=== PATIENT | male | born 1930 | race Caucasian/White ===

== ENCOUNTER 2016-12-07 07:31 | Inpatient (IN) ==
--- NOTE | 2016-12-07 07:44 | Emergency Department Note ---
Disposition Clinical Impression: Acute exacerbation of chronic obstructive pulmonary disease (COPD), Hypoxia Acute exacerbation of CHF (congestive heart failure) Qualifiers: Congestive heart failure type: unspecified congestive heart failure type Qualified Code(s): I50.9 - Heart failure, unspecified Disposition: Admitted As Inpatient SOB HPI - General Chief Complaint: ED Shortness of Breath/Dyspnea Stated Complaint: DINO Time Seen by Provider: 12/07/16 07:38 Limitations: physical limitation Nursing Notes Reviewed: Yes Vital Signs Reviewed: Yes - History of Present Illness Mr. Mcknight, an 86yo male, presents from the CT inpatient EMS with chief complaint at sign-out: Difficulty in breathing. Patient was admitted to the CT on the of this month for weakness. Per EMS, patient had a reported fever of 102F at [address] with syncopal episode. Per patient, patient was previously at [facility] for weakness and fever, was discharged from [facility] yesterday to CT inpatient from which he arrives today. Patient states, "This is a bronchospasm. This happens to me everyday at 4am. The CT respiratory does not come in until 7am." Patient has baseline home oxygen 2 L via nasal cannula continuous. PMH: CHF, SANDRA, CAD, history of a asbestos exposure, COPD, cor pulmonale, BPH, DM type II, GERD, diabetic peripheral neuropathy, hyperlipidemia, BPH, insomnia - Related Data Home Medications Medication Instructions Recorded Confirmed Alfuzosin HCl [Uroxatral] 10 mg PO QPM 02/14/16 12/07/16 Aspirin [Adult Low Dose Aspirin EC] 81 mg PO HS 02/14/16 12/07/16 Gabapentin [Neurontin] 300 mg PO BID 02/14/16 12/07/16 GlipiZIDE [Glucotrol] 5 mg PO BID 02/14/16 12/07/16 Guaifenesin 400 mg PO BID 02/14/16 12/07/16 Sertraline [Zoloft] 100 mg PO QAM 02/14/16 12/07/16 Acetaminophen [Tylenol] 650 mg PO TID PRN 12/07/16 12/07/16 Albuterol Neb [Proventil Neb] 2.5 mg IH QID PRN 12/07/16 12/07/16 Atorvastatin [Lipitor] 10 mg PO HS 12/07/16 12/07/16 Bisacodyl [Dulcolax] 20 mg PO DAILY PRN 12/07/16 12/07/16 Budesonide/Formoterol 160/4.5 2 puff IH BIDR 12/07/16 12/07/16 [Symbicort 160/4.5] Chlorhexidine Gluconate [Peridex] 15 ml MM BID 12/07/16 12/07/16 Diltiazem HCl [Diltiazem 24Hr Cd] 240 mg PO DAILY 12/07/16 12/07/16 Enoxaparin [Lovenox] 40 mg SQ DAILY 12/07/16 12/07/16 Furosemide [Lasix] 20 mg PO DAILY 12/07/16 12/07/16 Polyethylene Glycol 3350 [MiraLAX] 17 gm PO DAILY PRN 12/07/16 12/07/16 Potassium Chloride [Klor-Con 10] 10 meq PO DAILY 12/07/16 12/07/16 PredniSONE [Deltasone] 20 mg PO DAILY 12/07/16 12/07/16 Tiotropium [Spiriva] 18 mcg IH 0700 12/07/16 12/07/16 Allergies Allergy/AdvReac Type Severity Reaction Status Date / Time losartan Allergy Hives Verified 12/07/16 07:33 All systems ED: reviewed and negative except as stated. Constitutional: Reports: fever, weakness. Denies: chills Cardiovascular: Reports: dyspnea on exertion. Denies: chest pain, palpitations Respiratory: Reports: dyspnea. Denies: cough, wheezes Gastrointestinal: Denies: abdominal pain, nausea, vomiting, diarrhea, constipation Musculoskeletal: Denies: back pain, neck pain, joint swelling Neurological: Reports: weakness. Denies: headache, numbness, paresthesias, confusion Past Medical History - Past Medical History Medical history: Reports: asthma, CHF, COPD, coronary artery disease, diabetes, hyperlipidemia, hypertension, other Surgical history: Reports: no surgical history Psychiatric history: Reports: anxiety, depression - Social History Smoking Status: Former smoker Smokeless Tobacco Status: No Alcohol use: Reports: none Drug use: Reports: none Physical Exam General: Patient is alert, oriented, and in mild respiratory distress as evidenced by his tachypnea; no retractions, nasal flaring, cyanosis, or tripoding. HEENT: No facial asymmetry. Head is normocephalic and atraumatic. PERRLA, EOMI. Trachea midline. Cardiovascular: Heart regular rate and rhythm without clicks, rubs, gallops, or murmurs. No JVD. Respiratory: Symmetric chest rise with good respiratory effort. Prolonged expiratory phase. Bilateral breath sounds are clear without crackles, or rhonchi. No wheezing on anterior or lateral brito. Abdomen: Obese. Bowel sounds present normoactive x-4 quadrants. Abdomen is soft, nondistended, and nontender. Unable to assess organomegaly secondary to patient's body habitus. Psych: Patient's affect is appropriate for situation. - General Limitations: physical limitation General appearance: alert, in no apparent distress Course Course Narrative: Patient meets surgical criteria as defined by tachypnea of 24, tachycardia of 95. He is mildly hypoxic with oxygen saturation 87-89% on 2 L via nasal cannula. He remains hypoxic on 4 L nasal cannula. This improved substantially on a Ventimask 50%. Workup for dyspnea as well as sepsis. [facility] shows [facility] in [facility] 5 days ago; imaging was negative as detailed below. ----- [facility] at 22:03 read as stable subcentimeter pulmonary nodules consistent with a benign etiology, mild emphysema and evidence of subsegmental atelectasis versus scarring in both lungs , bilateral pleural plaques compatible with asbestos exposure, mild enlargement of the pulmonary arteries suggestive of pulmonary artery hypertension. 2-3 view x-ray of right hip status post fall and right hip pain, [facility]/30 at 15:00 shows bony alignment of the right hip within normal limits. No displaced fractures or dislocations are seen. 2 view chest [facility] dated 11/30 at 15:00 read as stable chest without evidence of acute cardiopulmonary disease. CT head without contrast [facility] in the [facility] dated 11/30 at 14:59 read as no evidence of intracranial hemorrhage or skull fracture. ----- Patient's imaging at this facility is negative for acute process. Chest X-Ray 12/07/16 07:39 IMPRESSION: 1. Findings suggesting asbestos related pleural disease. 2. Mild patchy ground-glass densities which are likely chronic in nature versus subtle interstitial edema. 3. No lobar pneumonia. D/ / Bernabe Gilmore MD / Bernabe Gilmore MD Interpreting Provider: Bernabe Gilmore MD Chest X-Ray 12/07/16 07:39 IMPRESSION: 1. Findings suggesting asbestos related pleural disease. 2. Mild patchy ground-glass densities which are likely chronic in nature versus subtle interstitial edema. 3. No lobar pneumonia. D/ / 12/07/2016 09:04:44 Bernabe Gilmore MD / Jimena Abbott Interpreting Provider: Bernabe Gilmore MD Head CT 12/07/16 08:26 IMPRESSION: 1. No acute intracranial abnormality. Chronic atrophy and small vessel ischemic changes. 2. Indeterminate hypodense foci of the left frontal lobe without expansion. When able, recommend comparison with prior MRI of the brain without contrast to 07/01/2015. D/ / 12/07/2016 09:28:43 Bernabe Gilmore MD / keegan Interpreting Provider: Bernabe Gilmore MD Chest CTA 12/07/16 09:10 IMPRESSION: 1. COPD. Decreased lung volumes which may relate to fibrosis. There is evidence of asbestos related pleural disease with chronic bilateral trace pleural effusions. 2. Cardiomegaly and central ground-glass densities suggesting acute congestive heart failure. Mild bibasilar atelectasis. No definite pneumonia. 3. No acute pulmonary emboli. Evidence of chronic pulmonary artery hypertension. D/ / 12/07/2016 10:03:06 Bernabe Gilmore MD / keegan Interpreting Provider: Bernabe Gilmore MD 10:[address] Gibson. He agrees to accept the patient for continued respiratory care and management. 10:[address] Macias (CT ED) Spoke with Dr. Bush (patient's PCP) - updated him on Mr. Mcknight as well as our rationale for admission. He notes patient spiked a fever wile inpatient at CT. They could not find a source. He spoke with ID at [facility] - they postulated patient could have mild serotonin syndrome, though he only occasionally takes low sertaline. They held this medication prior to transfer to [facility]. Vital Signs Temperature 99.4 F 12/07/16 07:34 Pulse Rate 95 12/07/16 07:34 Respiratory Rate 26 12/07/16 07:34 Blood Pressure 136/81 12/07/16 07:34 O2 Sat by Pulse Oximetry 89 L 12/07/16 07:34 Temperature 99.4 F 12/07/16 07:34 Pulse Rate 81 12/07/16 10:34 Respiratory Rate 22 12/07/16 09:45 Blood Pressure 124/76 12/07/16 10:34 O2 Sat by Pulse Oximetry 95 12/07/16 11:37 Oxygen Delivery Oxygen Delivery Ventilator Shortness of Breath/Dyspnea - Medical Records Medical records reviewed: Yes I reviewed the patient's medical records. - Lab Data Lab results reviewed: Yes I reviewed the patient's lab results. Result diagrams: 12/07/16 07:46 12/07/16 07:46 Lab Results 12/07/16 12/07/16 12/07/16 Range/Units 07:45 07:46 07:46 WBC 6.3 (4.3-11.1) K/mcL RBC 3.52 L (4.19-5.50) M/mcL Hgb 10.0 L (12.9-16.9) g/dL Hct 29.9 L (37.5-50.1) % MCV 84.9 (83.0-100.0) fL MCH 28.4 (28.0-33.3) pg MCHC 33.4 (31.6-35.5) g/dL RDW 14.2 (11.5-14.5) % Plt Count 172 (140-400) K/mcL MPV 10.2 (9.4-12.4) fL Immature Gran % 1.7 (0-4) % Seg Neutrophils % 76.4 % Lymphocytes % 10.6 % Monocytes % 8.5 % Eosinophils % 2.5 % Basophils % 0.3 % Neutrophils # 4.8 (1.6-8.9) K/mcL Lymphocytes # 0.7 (0.6-4.6) K/mcL Monocytes # 0.5 (0.0-1.3) K/mcL Eosinophils # 0.2 (0.0-0.6) K/mcL Basophils # 0.0 (0.0-0.2) K/mcL PT (9.4-12.1) Seconds INR APTT (26.0-36.0) Seconds Sodium 139 (136-145) mEq/L Potassium 4.2 (3.5-4.5) mEq/L Chloride 107 (98-109) mEq/L Carbon Dioxide 23 (19-29) mEq/L BUN 14 (8-26) mg/dL Creatinine 1.05 (0.72-1.25) mg/dL Est GFR ( Amer) > 60 (> 60) Est GFR (Non-Af Amer) > 60 (> 60) BUN/Creatinine Ratio 13 (6-26) Glucose 158 H (70-99) mg/dL POC Glucose 159 H (58-89) Calculated Osmolality 292 (280-300) Lactic Acid (0.5-2.2) mmol/L Calcium 8.2 L (8.6-10.8) mg/dL Phosphorus 2.3 (2.3-4.7) mg/dL Magnesium 1.3 L (1.6-2.6) mg/dL Troponin I (0-0.03) ng/mL B-Natriuretic Peptide (0-100) pg/mL Urine Color (Yellow) Urine Clarity (Clear) Urine pH (5.0-8.0) pH Units Ur Specific Josephine (1.010-1.025) Urine Protein (Neg-Trace) mg/dL Urine Glucose (UA) (Normal) mg/dL Urine Ketones (Negative) mg/dL Urine Blood (Negative) Urine Nitrite (Negative) Urine Bilirubin (Negative) Urine Urobilinogen (Normal) mg/dL Ur Leukocyte Esterase (Negative) Urine Microscopic RBC (0-3) per hpf Urine Microscopic WBC (0-3) per hpf Ur Squamous Epith Cells (None-Few) per lpf Urine Bacteria (None-Few) per hpf Hyaline Casts (None-Few) per lpf Ur Culture Indicated? (NO) 12/07/16 12/07/16 12/07/16 Range/Units 07:46 07:46 07:46 WBC (4.3-11.1) K/mcL RBC (4.19-5.50) M/mcL Hgb (12.9-16.9) g/dL Hct (37.5-50.1) % MCV (83.0-100.0) fL MCH (28.0-33.3) pg MCHC (31.6-35.5) g/dL RDW (11.5-14.5) % Plt Count (140-400) K/mcL MPV (9.4-12.4) fL Immature Gran % (0-4) % Seg Neutrophils % % Lymphocytes % % Monocytes % % Eosinophils % % Basophils % % Neutrophils # (1.6-8.9) K/mcL Lymphocytes # (0.6-4.6) K/mcL Monocytes # (0.0-1.3) K/mcL Eosinophils # (0.0-0.6) K/mcL Basophils # (0.0-0.2) K/mcL PT 13.1 H (9.4-12.1) Seconds INR 1.2 APTT 35.8 (26.0-36.0) Seconds Sodium (136-145) mEq/L Potassium (3.5-4.5) mEq/L Chloride (98-109) mEq/L Carbon Dioxide (19-29) mEq/L BUN (8-26) mg/dL Creatinine (0.72-1.25) mg/dL Est GFR ( Amer) (> 60) Est GFR (Non-Af Amer) (> 60) BUN/Creatinine Ratio (6-26) Glucose (70-99) mg/dL POC Glucose (58-89) Calculated Osmolality (280-300) Lactic Acid (0.5-2.2) mmol/L Calcium (8.6-10.8) mg/dL Phosphorus (2.3-4.7) mg/dL Magnesium (1.6-2.6) mg/dL Troponin I 0.13 H* (0-0.03) ng/mL B-Natriuretic Peptide 361 H (0-100) pg/mL Urine Color (Yellow) Urine Clarity (Clear) Urine pH (5.0-8.0) pH Units Ur Specific Josephine (1.010-1.025) Urine Protein (Neg-Trace) mg/dL Urine Glucose (UA) (Normal) mg/dL Urine Ketones (Negative) mg/dL Urine Blood (Negative) Urine Nitrite (Negative) Urine Bilirubin (Negative) Urine Urobilinogen (Normal) mg/dL Ur Leukocyte Esterase (Negative) Urine Microscopic RBC (0-3) per hpf Urine Microscopic WBC (0-3) per hpf Ur Squamous Epith Cells (None-Few) per lpf Urine Bacteria (None-Few) per hpf Hyaline Casts (None-Few) per lpf Ur Culture Indicated? (NO) 12/07/16 12/07/16 12/07/16 Range/Units 07:53 08:05 10:17 WBC (4.3-11.1) K/mcL RBC (4.19-5.50) M/mcL Hgb (12.9-16.9) g/dL Hct (37.5-50.1) % MCV (83.0-100.0) fL MCH (28.0-33.3) pg MCHC (31.6-35.5) g/dL RDW (11.5-14.5) % Plt Count (140-400) K/mcL MPV (9.4-12.4) fL Immature Gran % (0-4) % Seg Neutrophils % % Lymphocytes % % Monocytes % % Eosinophils % % Basophils % % Neutrophils # (1.6-8.9) K/mcL Lymphocytes # (0.6-4.6) K/mcL Monocytes # (0.0-1.3) K/mcL Eosinophils # (0.0-0.6) K/mcL Basophils # (0.0-0.2) K/mcL PT (9.4-12.1) Seconds INR APTT (26.0-36.0) Seconds Sodium (136-145) mEq/L Potassium (3.5-4.5) mEq/L Chloride (98-109) mEq/L Carbon Dioxide (19-29) mEq/L BUN (8-26) mg/dL Creatinine (0.72-1.25) mg/dL Est GFR ( Amer) (> 60) Est GFR (Non-Af Amer) (> 60) BUN/Creatinine Ratio (6-26) Glucose (70-99) mg/dL POC Glucose (58-89) Calculated Osmolality (280-300) Lactic Acid 1.3 1.3 (0.5-2.2) mmol/L Calcium (8.6-10.8) mg/dL Phosphorus (2.3-4.7) mg/dL Magnesium (1.6-2.6) mg/dL Troponin I (0-0.03) ng/mL B-Natriuretic Peptide (0-100) pg/mL Urine Color Yellow (Yellow) Urine Clarity Clear (Clear) Urine pH 6.0 (5.0-8.0) pH Units Ur Specific Josephine 1.014 (1.010-1.025) Urine Protein Negative (Neg-Trace) mg/dL Urine Glucose (UA) Normal (Normal) mg/dL Urine Ketones Negative (Negative) mg/dL Urine Blood Trace H (Negative) Urine Nitrite Negative (Negative) Urine Bilirubin Negative (Negative) Urine Urobilinogen Normal (Normal) mg/dL Ur Leukocyte Esterase Negative (Negative) Urine Microscopic RBC 5-15 H (0-3) per hpf Urine Microscopic WBC 0-3 (0-3) per hpf Ur Squamous Epith Cells Moderate H (None-Few) per lpf Urine Bacteria None Seen (None-Few) per hpf Hyaline Casts None Seen (None-Few) per lpf Ur Culture Indicated? NO (NO) - Radiology Data Radiology results reviewed: Yes I reviewed the patient's radiology results. - EKG Data EKG attestation: Yes I reviewed and interpreted this EKG. EKG results narrative: EKG dated 12/07/16 at 07:38 shows normal sinus rhythm with a rate of 84. Normal intervals. Left axis. Nonspecific ST-T changes. Compared to previous EKG dated 02/14/2016 at 17:02 showing no acute ischemic changes in comparison. Attestation Statement - Attestation Attestation: I examined this patient and my medical decision-making was reviewed with the PURCHASING MANAGER/SALES/PA/Advanced Practice Nurse/Resident Physician. I agree with the documented findings, disposition and treatment plan as described except to the extent set forth below. Patient emergency department with a chief complaint of altered mental status. Patient was a transfer from the CT in patient. Dr. cruz I took he had been admitted for several days for weakness. Today he was more confused and found to be hypoxic. Improve when oxygen was placed. On arrival here he is awake alert. Oriented today other week. Lungs diminished but clear. No swelling. Abdomen soft nontender. Moving all extremities symmetrically. Plan. Altered mental status workup. Patient improved on nonrebreather. Chest x-ray was clear. CTA pending. Low magnesium treated. Aspirin given for elevated troponin.
[2016-12-07] MEDS ORDERED: Ipratropium/Albuterol Neb 3 ML IH ONE (08:02)
[2016-12-07 08:04] LABS: Basophils % 0.3 %; Eosinophils # 0.2 K/mcL (0.0-0.6); Eosinophils % 2.5 %; Hematocrit 29.9 % (37.5-50.1); Immature Granulocytes % 1.7 % (0-4); Lymphocytes # 0.7 K/mcL (0.6-4.6); Lymphocytes % 10.6 %; Mean Corpuscular HGB Conc 33.4 g/dL (31.6-35.5); Mean Corpuscular Hemoglobin 28.4 pg (28.0-33.3); Mean Corpuscular Volume 84.9 fL (83.0-100.0); Mean Platelet Volume 10.2 fL (9.4-12.4); Monocytes # 0.5 K/mcL (0.0-1.3); Monocytes % 8.5 %; Neutrophils # 4.8 K/mcL (1.6-8.9); Platelet Count 172 K/mcL (140-400); Red Blood Count 3.52 M/mcL (4.19-5.50); Red Cell Distribution Width 14.2 % (11.5-14.5); Segmented Neutrophils % 76.4 %
[2016-12-07 08:09] LABS: INR 1.2; Prothrombin Time 13.1 Seconds (9.4-12.1)
[2016-12-07 08:12] LABS: Activated Partial Thrombo Time 35.8 Seconds (26.0-36.0)
[2016-12-07 08:14] LABS: Bilirubin,Urine Negative (Negative); Blood,Urine Trace (Negative); Clarity,Urine Clear (Clear); Color,Urine Yellow (Yellow); Glucose,Urine (UA) Normal (Normal); Ketones,Urine Negative (Negative); Leukocyte Esterase,Urine Negative (Negative); Nitrite,Urine Negative (Negative); Protein,Urine Negative (Neg-Trace); Specific Gravity,Urine 1.014 (1.010-1.025); Urobilinogen,Urine Normal (Normal)
[2016-12-07 08:16] LABS: Bacteria,Urine None Seen per hpf (None-Few); Hyaline Casts,Urine None Seen per lpf (None-Few); Squamous Epithelial Cell,Urine Moderate per lpf (None-Few); WBC,Urine 0-3 per hpf (0-3)
[2016-12-07 08:18] LABS: BUN/Creatinine Ratio 13 (6-26); Blood Urea Nitrogen 14 mg/dL (8-26); Calcium 8.2 mg/dL (8.6-10.8); Carbon Dioxide 23 mEq/L (19-29); Chloride 107 mEq/L (98-109); Glucose 158 mg/dL (70-99); Osmolality,Calculated 292 (280-300); Potassium 4.2 mEq/L (3.5-4.5); Sodium 139 mEq/L (136-145); eGFR For African Americans > 60 (> 60); eGFR For Non-African Americans > 60 (> 60)
[2016-12-07 08:28] LABS: Magnesium 1.3 mg/dL (1.6-2.6); Phosphorous 2.3 mg/dL (2.3-4.7)
[2016-12-07] MEDS ORDERED: Magnesium Oxide 400 MG TABLET PO STA (09:15)
[2016-12-07] MEDS ORDERED: Aspirin 325 MG TABLET PO ONE (09:16)
[2016-12-07] MEDS ORDERED: Furosemide 40 MG/4 ML VIAL IVP ONE (10:21)
[2016-12-07] MEDS ORDERED: Ondansetron 4 MG/2 ML VIAL IVP PRN (11:16)
[2016-12-07] MEDS ORDERED: Naloxone 0.4 MG/ML INJ IVP PRN (11:16)
[2016-12-07] MEDS ORDERED: *HR* Morphine 2 MG/ML SYRINGE IVP PRN (11:16)
[2016-12-07] MEDS ORDERED: Acetaminophen 325 MG TABLET PO PRN (11:16)
[2016-12-07] MEDS ORDERED: *HR* Dextrose 50 % in Water (Syg) 50 ML SYRINGE IVP PRN (11:16)
[2016-12-07] MEDS ORDERED: Dextrose Gel 15 GM PO PRN ×2 (11:16)
[2016-12-07] MEDS ORDERED: D5% in Water 1,000 ML IV PRN (11:16)
[2016-12-07] MEDS ORDERED: Ipratropium/Albuterol Neb 3 ML IH PRN (11:22)
[2016-12-07] MEDS ORDERED: Nitroglycerin 0.4 MG TAB.SUBL SL PRN (11:22)
--- NOTE | 2016-12-07 11:25 | Internal Med History&Physical ---
Date of Encounter: 12/07/16 Time of Encounter: 11:23 Assessment and Plan (1) Acute respiratory failure with hypoxia Current visit: Yes Status: Acute Acute hypoxic respiratory failure likely secondary to pulmonary edema from acute systolic and diastolic CHF exacerbation Lasix IV, strict I's and O's and daily weight The patient has an elevated troponin likely secondary to demand ischemia, we will order an echocardiogram to assess wall motion abnormalities Check another troponin, continue telemetry, consider urology consult (2) CHF exacerbation Current visit: No Status: Acute (3) Asbestos exposure Current visit: Yes Status: Acute (4) Diabetes Current visit: No Status: Acute Continue insulin sliding scale Qualifiers: Diabetes mellitus type: type 2 Diabetes mellitus complication status: with neurologic complications Diabetes mellitus complication detail: with unspecified neuropathy 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 The patient will be admitted as inpatient, he is expected to stay more than 12 midnight. He is a DNR CC arrest DNI. Time spent on this admission 40 minutes. High risk for respiratory failure Qualifiers: COPD type: chronic bronchitis Chronic bronchitis type: unspecified Qualified Code(s): J42 - Unspecified chronic bronchitis Internal Medicine - H&P: HPI Chief complaint: Shortness of breath Admitted From: Emergency Dept History of present illness: Mr. Mcknight is a 86 year old male with a past medical history of systolic and diastolic CHF and ejection fraction of 45% last echocardiogram on January 2016, COPD oxygen dependent, diabetes type 2 not insulin-dependent, comes transferred from the [facility] facility complaining of difficulty breathing. His BNP is [address] angiography of the chest was performed showing no pulmonary emboli but showed acute CHF and trace pleural effusions. CT scan of the head was performed showing a left frontal lobe hypodense abnormality but he has no deficits, unable to compare with prior studies as PACs is down. Patient feels less short of breath at the moment, she desaturated down to the 80s even on oxygen, his first troponin is 0.13, no acute EKG changes. [place] better after receiving Lasix. Was recently treated for bronchitis. Denies any major fevers although he was told that he run a low grade fevers in the past few days at the [facility]. Past Med Surg Social Fam HX - Past Medical History Medical history: asthma, CHF (Diastolic and systolic last echo January 2016 shows an ejection fraction of 45%), COPD (Oxygen dependent uses 2 L during the day and 4 L at night), coronary artery disease, diabetes (Not insulin-dependent), hyperlipidemia, hypertension, other (Neuropathy, depression, BPH, asbestos exposure) Psychiatric history: anxiety, depression - Past Surgical History Surgical History: no surgical history, other (Cardiac catheterization showing 30 % stenosis in the mid LAD last year, prostate surgery) - Social History Smoking Status: Former smoker (Quit 1972) Smokeless Tobacco Status: No Alcohol use: none Drug use: none - Family History Father Adopted: No Living Status: Hx Family Cardiac Disorders: No Hx Family Respiratory Disorders: Yes Hx Family Cancer: No Hx Family GI Disorders: No Hx Family Endocrine Disorder: Yes Hx Family Neuromuscular Disorders: No Hx Family Neurologic Disorders: No Hx Family HEENT Disorders: No Hx Family Autoimmune Disorders: No - Additional Family History Additional family history: Mother with uterine cancer and sister with lung cancer Internal Medicine - H&P: Meds Alfuzosin HCl [Uroxatral] 10 mg PO QPM 02/14/16 [History] Aspirin [Adult Low Dose Aspirin EC] 81 mg PO HS 02/14/16 [History] Gabapentin [Neurontin] 300 mg PO BID 02/14/16 [History] GlipiZIDE [Glucotrol] 5 mg PO BID 02/14/16 [History] Guaifenesin 400 mg PO BID 02/14/16 [History] Sertraline [Zoloft] 100 mg PO QAM 02/14/16 [History] Acetaminophen [Tylenol] 650 mg PO TID PRN 12/07/16 [History] Albuterol Neb [Proventil Neb] 2.5 mg IH QID PRN 12/07/16 [History] Atorvastatin [Lipitor] 10 mg PO HS 12/07/16 [History] Bisacodyl [Dulcolax] 20 mg PO DAILY PRN 12/07/16 [History] Budesonide/Formoterol 160/4.5 [Symbicort 160/4.5] 2 puff IH BIDR 12/07/16 [ History] Chlorhexidine Gluconate [Peridex] 15 ml MM BID 12/07/16 [History] Diltiazem HCl [Diltiazem 24Hr Cd] 240 mg PO DAILY 12/07/16 [History] Enoxaparin [Lovenox] 40 mg SQ DAILY 12/07/16 [History] Furosemide [Lasix] 20 mg PO DAILY 12/07/16 [History] Polyethylene Glycol 3350 [MiraLAX] 17 gm PO DAILY PRN 12/07/16 [History] Potassium Chloride [Klor-Con 10] 10 meq PO DAILY 12/07/16 [History] PredniSONE [Deltasone] 20 mg PO DAILY 12/07/16 [History] Tiotropium [Spiriva] 18 mcg IH 0700 12/07/16 [History] Allergies losartan Allergy (Verified 12/07/16 07:33) Hives All Systems PM: A 10-system review of systems was performed and is negative for pertinent findings except as documented above in the HPI. Review of systems: Denies any chest pain, no abdominal pain, no dysuria. Other systems out of the 10 reviewed were negative - Constitutional Vitals: Temp Pulse Resp BP Pulse Ox 99.4 F 81 22 124/76 97 12/07/16 07:34 12/07/16 10:34 12/07/16 09:45 12/07/16 10:34 12/07/16 10:34 General appearance: Present: A&O X 3 - Head Head exam: Present: atraumatic, normocephalic - Eye Eye exam: Present: PERRL, conjuntiva pink, sclera anicteric Pupils: Present: PERRL - Neck Neck exam general surgery: Present: supple, trachea midline. Absent: lymphadenopathy - Respiratory Respiratory exam: Present: decreased breath sounds, CTAB, rales (Bibasilar crackles). Absent: accessory muscle use, rhonchi, wheezes - Cardiovascular Cardiovascular exam: Present: RRR, +S1, +S2. Absent: diastolic murmur, gallop, rubs, systolic murmur - GI/Abdominal GI/Abdominal exam: Present: normal bowel sounds, soft, no peritoneal signs. Absent: distended, tenderness - Extremities Exam Extremities exam: Present: warm, radial pulses palpable and symetrical. Absent : calf tenderness, cyanotic, pedal edema - Neurological Exam Neurological exam: Present: CN II-XII intact, oriented X3, no focal deficits. Absent: pronater drift, facial droop, speech deficit - Skin Skin exam: Present: dry, intact Internal Med - H&P Results - Labs CBC & Chem 7: 12/07/16 07:46 12/07/16 07:46 Labs: Short CBC 12/07/16 Range/Units 07:46 WBC 6.3 (4.3-11.1) K/mcL Hgb 10.0 L (12.9-16.9) g/dL Hct 29.9 L (37.5-50.1) % Plt Count 172 (140-400) K/mcL Neutrophils # 4.8 (1.6-8.9) K/mcL BMP 12/07/16 07:46 Sodium 139 Potassium 4.2 Chloride 107 Carbon Dioxide 23 BUN 14 Creatinine 1.05 Glucose 158 H Calcium 8.2 L Cardiac Enzymes 12/07/16 Range/Units 07:46 Troponin I 0.13 H* (0-0.03) ng/mL Urine 12/07/16 Range/Units 08:05 Urine Color Yellow (Yellow) Urine Clarity Clear (Clear) Urine pH 6.0 (5.0-8.0) pH Units Ur Specific [place] 1.014 (1.010-1.025) Urine Protein Negative (Neg-Trace) mg/dL Urine Glucose (UA) Normal (Normal) mg/dL - Impressions ITS Impressions Chest X-Ray 12/07/16 07:39 IMPRESSION: 1. Findings suggesting asbestos related pleural disease. 2. Mild patchy ground-glass densities which are likely chronic in nature versus subtle interstitial edema. 3. No lobar pneumonia. D/ / 12/07/2016 09:04:44 Bernabe Gilmore MD / Jimena Abbott Interpreting Provider: Bernabe Gilmore MD Head CT 12/07/16 08:26 IMPRESSION: 1. No acute intracranial abnormality. Chronic atrophy and small vessel ischemic changes. 2. Indeterminate hypodense foci of the left frontal lobe without expansion. When able, recommend comparison with prior MRI of the brain without contrast to 07/01/2015. D/ / 12/07/2016 09:28:43 Bernabe Gilmore MD / keegan Interpreting Provider: Bernabe Gilmore MD Chest CTA 12/07/16 09:10 IMPRESSION: 1. COPD. Decreased lung volumes which may relate to fibrosis. There is evidence of asbestos related pleural disease with chronic bilateral trace pleural effusions. 2. Cardiomegaly and central ground-glass densities suggesting acute congestive heart failure. Mild bibasilar atelectasis. No definite pneumonia. 3. No acute pulmonary emboli. Evidence of chronic pulmonary artery hypertension. D/ / 12/07/2016 10:03:06 Bernabe Gilmore MD / keegan Interpreting Provider: Bernabe Gilmore MD
--- NOTE | 2016-12-07 12:00 | Electrocardiograph Report ---
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
[2016-12-07] MEDS: *HR* Enoxaparin 40 MG/0.4 ML SYRINGE SQ SCH (15:13)
[2016-12-07] MEDS: Ipratropium/Albuterol Neb 3 ML IH SCH ×2 (16:24→22:19)
--- NOTE | 2016-12-07 20:28 | ECHO - Doppler Report ---
Echocardiogram Name: Musa Mcknight Date of Study: 12/07/2016 Date: 1930 Ht: 69.0 in Medical Record#: [id number] Age: 86 Wt: 203.0 lb Gender: Male BSA: 2.08 Order #: [id number] Location: [facility] Room #: 2NE25 Reading Physician: Kevin Duncan MD, [facility] Electric Meter Installer Helper: Lashonda Carson Ordering Physician: Sandeep Hardwick MD Primary Physician: [facility] Indications: Congestive heart failure Impressions: Normal left ventricular size and systolic function, LVEF 55-60%. Mild left ventricular diastolic dysfunction. Normal right ventricular size and function. No significant valvular dysfunction. Mild-moderate pulmonary hypertension. Estimated RVSP = 46 mmHg. Left Ventricular Wall Motion: Rest Echo Findings All wall segments showed normal motion. Findings: Study Quality * Suboptimal echo windows. ECG Findings * Normal sinus rhythm. Left Ventricle * Normal left ventricular size and systolic function, LVEF 55-60%. * Normal LV wall thickness. * Mild left ventricular diastolic dysfunction. Right Ventricle * Normal right ventricular size and function. Left Atrium * Normal left atrial size. Right Atrium * Normal right atrial size. Aorta * Normally sized aortic root. Pericardium * There is a trivial pericardial effusion present. IVC * The IVC is not well evaluated. Aortic Valve * Trileaflet aortic valve. * No aortic stenosis. * No aortic regurgitation. Mitral Valve * Mild mitral annular calcification * No mitral stenosis. * Trace mitral regurgitation. Tricuspid Valve * Tricuspid valve not well visualized. * No tricuspid stenosis. * Trace tricuspid regurgitation. * Mild-moderate pulmonary hypertension. Estimated RVSP = 46 mmHg. Pulmonic Valve * Pulmonic valve not well visualized. * No pulmonic stenosis. * No pulmonic regurgitation. History Diabetes 02/15/2016 a Previous Echo was performed. Measurements: BP: 108/ 66 2D Normal Values RVIDd: 3.00 cm IVSd: 1.00 cm 0.6 - 1.0 cm LVIDd: 5.90 cm 3.7 - 5.6 cm LVPWd: 1.00 cm 0.6 - 1.1 cm LVIDs: 3.90 cm 1.5 - 3.6 cm AO: 3.30 cm < 4.0 cm %FS: 33.90 cm >25 % LA volume: 53 Mitral Valve Peak E:.72 m/sec Peak A:1.05 m/sec E/A Ratio:0.7 Tricuspid Valve TV Regurg Peak Grad: 41.00mmHg TV Regurg Peak John: 3.22m/sec Updated by Kevin Duncan MD, [facility] on 12/07/2016 8:20:32 PM electronically signed on 12/07/2016 8:25:16 PM with status of Final Wall Motion Burk: 1=Normal, 2=Hypokinesis, 3=Akinesis, 4=Dyskinesis, 5=Aneurysmal, 6=Hyperkinetic, X=Not Visualized (Blank)=Missing
[2016-12-07] MEDS: Furosemide 40 MG/4 ML VIAL IV SCH (22:00)
[2016-12-07] MEDS: Gabapentin 300 MG CAPSULE PO SCH (22:01)
[2016-12-07] MEDS: Aspirin Enteric Coated 81 MG Tablet PO SCH (22:01)
[2016-12-07] MEDS: *HR* GlipiZIDE 5 MG TABLET PO SCH (22:01)
[2016-12-08] MEDS: Ipratropium/Albuterol Neb 3 ML IH SCH ×4 (04:14→22:40)
[2016-12-08 06:08] LABS: BUN/Creatinine Ratio 13 (6-26); Blood Urea Nitrogen 13 mg/dL (8-26); Carbon Dioxide 25 mEq/L (19-29); Chloride 104 mEq/L (98-109); Glucose 109 mg/dL (70-99); Osmolality,Calculated 293 (280-300); Potassium 3.4 mEq/L (3.5-4.5); Sodium 141 mEq/L (136-145); eGFR For African Americans > 60 (> 60); eGFR For Non-African Americans > 60 (> 60)
--- NOTE | 2016-12-08 08:43 | Internal Med Progress Note ---
<Josh Nicole - Last Filed: 12/08/16 18:02> Date of Encounter: 12/08/16 Time of Encounter: 07:30 - Assessment and plan (1) Acute respiratory failure with hypoxia Current Visit: Yes Status: Acute Assessment and plan: Likely secondary to pulmonary edema due to acute systolic and diastolic CHF exacerbation Continue Lasix, strict Is and Os and daily weight Patient had elevated troponins, originally at 0.11, but ow down to 0.05 - likely due to demand ischemia. Echo was obtained with no abnormalities noted. Continue telemetry Continue oxygen and breathing treatments with Duoneb (2) Acute exacerbation of chronic obstructive pulmonary disease (COPD) Current Visit: Yes Status: Acute Assessment and plan: Continue prednisone and oxgen therapy Continue duoneb treatments Started rocephin for COPD exacerbation (3) Acute exacerbation of CHF (congestive heart failure) Current Visit: Yes Status: Acute Assessment and plan: Continue lasix, and cardizem Strict Is and Os and daily weight Qualifiers: Congestive heart failure type: unspecified congestive heart failure type Qualified Code(s): I50.9 - Heart failure, unspecified (4) Asbestos exposure Current Visit: Yes Status: Acute Assessment and plan: -CT of chest shows thickening of pleura (5) Diabetes Current Visit: No Status: Acute Assessment and plan: -Continue glipizide -Monitor Qualifiers: Diabetes mellitus type: type 2 Diabetes mellitus complication status: with neurologic complications Diabetes mellitus complication detail: with unspecified neuropathy Diabetes mellitus employee benefits coordinator insulin use: without fci use Qualified Code(s): E11.40 - Type 2 diabetes mellitus with diabetic neuropathy, unspecified (6) DVT prophylaxis Current Visit: Yes Status: Acute Assessment and plan: Continue with lovanox 40 mg SQ QD (7) Constipation Current Visit: Yes Status: Acute Assessment and plan: -Patient complains of mild abdominal pain. Patient is urinating. No bladder scan needed. -No BM in 3 days. Patient appears comfortable in the chair. -WIll start scheduled colase. - Time Spent With Patient 25 - 35 minutes - Subjective Interval history: Mr. Mcknight is a pleasant 86 year old male who is here for evaluation of shortness of breath. Upon being awoken, he was slightly startled, and his sats dropped to the upper 80s despite bipap, but stabilized after a few minutes. He says he feels better today than yesterday. he was admitted yesterday from the [place] after hospitalization there for approximately one week for acute respiratory failure secondary pulmonary edema from acute CHF exacerbation. His only complaint was diffuse abdominal pain which he states has been present for a couple days. He states that he is "a bit slow" with his bowel movements, and claims that he has not had one for 3-4 days, which is likely contributing to his abdominal pain. - Constitutional Vitals: Temp Pulse Resp BP Pulse Ox 97.8 F 68 18 156/77 94 L 12/08/16 07:23 12/08/16 07:23 12/08/16 07:56 12/08/16 07:23 12/08/16 07:56 General appearance: Present: cooperative, A&O X 3, pleasant, answers questions appropriately - Head Head exam: Present: atraumatic, normocephalic - Eye Eye exam: Present: conjuntiva pink, sclera anicteric - Neck Neck exam general surgery: Present: supple, trachea midline. Absent: lymphadenopathy - Respiratory Respiratory exam: Present: respiratory distress, rhonchi - Cardiovascular Cardiovascular exam: Present: distant heart sounds, RRR, +S1, +S2. Absent: diastolic murmur, gallop, rubs, systolic murmur - GI/Abdominal GI/Abdominal exam: Present: normal bowel sounds, tenderness (RUQ), no peritoneal signs Additional comments: Patient sitting in chair and looks comfortable. RUQ tenderness that started today. Dull pain. that is Patient did not wince when palpated. No organomegaly, mass felt. Pain doesn't radiate. Still has gallbladder. - Extremities Exam Extremities exam: Present: normal capillary refill, normal inspection, warm, radial pulses palpable and symetrical. Absent: calf tenderness, cyanotic, pedal edema - Neurological Exam Neurological exam: Present: oriented X3, no focal deficits. Absent: pronater drift, facial droop, speech deficit - Psychiatric Psychiatric exam: Present: normal affect - Skin Skin exam: Present: dry, intact Internal Medicine: Result - Labs CBC & Chem 7: 12/08/16 09:28 12/08/16 05:02 Labs: BMP 12/08/16 05:02 Sodium 141 Potassium 3.4 L Chloride 104 Carbon Dioxide 25 BUN 13 Creatinine 1.00 Glucose 109 H Calcium 8.0 L Cardiac Enzymes 12/07/16 Range/Units 13:52 Troponin I 0.11 H* (0-0.03) ng/mL - ABG Interpretation ABG results: PT/INR, D-dimer PT 13.1 Seconds (9.4-12.1) H 12/07/16 07:46 - VTE Documentation of Mechanical Device: Intermittent pneumatic compression device Consult Discharge Plan - Plan [facility]errals[facility]Primary Care Provider[facility] - <Stan Díaz - Last Filed: 12/08/16 18:36> Date of Encounter: 12/08/16 - Assessment and plan (1) Acute respiratory failure with hypoxia Current Visit: Yes Status: Acute (2) Acute exacerbation of chronic obstructive pulmonary disease (COPD) Current Visit: Yes Status: Acute (3) Systolic CHF Current Visit: Yes Status: Acute Qualifiers: Heart failure chronicity: acute on chronic Qualified Code(s): I50.23 - Acute on chronic systolic (congestive) heart failure (4) Diabetes Current Visit: No Status: Acute Qualifiers: Diabetes mellitus type: type 2 Diabetes mellitus complication status: with neurologic complications Diabetes mellitus complication detail: with polyneuropathy Diabetes mellitus employee benefits coordinator insulin use: without fci use Qualified Code(s): E11.42 - Type 2 diabetes mellitus with diabetic polyneuropathy (5) Constipation Current Visit: Yes Status: Acute Qualifiers: Constipation type: slow transit constipation Qualified Code(s): K59.01 - Slow transit constipation - Constitutional Vitals: Temp Pulse Resp BP Pulse Ox 98.9 F 76 18 105/74 93 L 12/08/16 15:48 12/08/16 15:48 12/08/16 16:22 12/08/16 15:48 12/08/16 16:22 Internal Medicine: Result - Labs CBC & Chem 7: 12/08/16 09:28 12/08/16 05:02 Labs: Short CBC 12/08/16 Range/Units 09:28 WBC 7.9 (4.3-11.1) K/mcL Hgb 10.7 L (12.9-16.9) g/dL Hct 32.2 L (37.5-50.1) % Plt Count 212 (140-400) K/mcL Neutrophils # 6.2 (1.6-8.9) K/mcL BMP 12/08/16 05:02 Sodium 141 Potassium 3.4 L Chloride 104 Carbon Dioxide 25 BUN 13 Creatinine 1.00 Glucose 109 H Calcium 8.0 L Cardiac Enzymes 12/08/16 Range/Units 09:28 Troponin I 0.05 H* (0-0.03) ng/mL - ABG Interpretation ABG results: ABG ABG pH 7.47 pH Units (7.32-7.45) H 12/08/16 11:46 ABG pCO2 38 mmHg (35-45) 12/08/16 11:46 ABG pO2 75 mmHg (85-104) L 12/08/16 11:46 ABG O2 Saturation 96 % (95-98) 12/08/16 11:46 PT/INR, D-dimer PT 13.1 Seconds (9.4-12.1) H 12/07/16 07:46 - Attending Attestation I examined this patient and my medical decision-making was reviewed with the Resident Physician on 12/08/16. I agree with the documented findings, disposition and treatment plan as described except to the extent set forth below. Mr. Mcknight is currently admitted for acute hypoxic resp failure due to presumed pulmonary edema. He remains high risk due to potential for worsening respiratory symptoms and failure. Mr. Mcknight is on higher flow of oxygen today. He is coughing some. No chest pain. No GI symptoms Exam Alert and pleasant Mucus membranes dry Heart reg Lungs with scattered rales. no edema now I/P 1. Acute on chronic hypoxic resp failure 2. Acute pulmonary edema by CT Further diagnoses and plan as above.
[2016-12-08] MEDS: Furosemide 40 MG/4 ML VIAL IV SCH ×2 (08:53→18:06)
[2016-12-08] MEDS: Gabapentin 300 MG CAPSULE PO SCH ×2 (08:54→20:16)
[2016-12-08] MEDS: Diltiazem CD (24hr) 240 MG CAPSULE PO SCH (08:54)
[2016-12-08] MEDS: *HR* Enoxaparin 40 MG/0.4 ML SYRINGE SQ SCH (08:54)
[2016-12-08] MEDS: *HR* GlipiZIDE 5 MG TABLET PO SCH (08:55)
[2016-12-08] MEDS ORDERED: predniSONE 20 MG TABLET PO SCH (09:00)
[2016-12-08 09:38] LABS: Basophils % 0.4 %; Eosinophils # 0.2 K/mcL (0.0-0.6); Hematocrit 32.2 % (37.5-50.1); Hemoglobin 10.7 g/dL (12.9-16.9); Lymphocytes # 0.8 K/mcL (0.6-4.6); Lymphocytes % 9.9 %; Mean Corpuscular HGB Conc 33.2 g/dL (31.6-35.5); Mean Corpuscular Hemoglobin 28.4 pg (28.0-33.3); Mean Corpuscular Volume 85.4 fL (83.0-100.0); Mean Platelet Volume 10.2 fL (9.4-12.4); Monocytes # 0.6 K/mcL (0.0-1.3); Neutrophils # 6.2 K/mcL (1.6-8.9); Platelet Count 212 K/mcL (140-400); Red Blood Count 3.77 M/mcL (4.19-5.50); Red Cell Distribution Width 14.2 % (11.5-14.5); Segmented Neutrophils % 78.7 %
[2016-12-08 12:05] LABS: ABG Base Excess 3.8 mEq/L (-2.0 to 3.0); ABG HCO3 27.7 mEQ/L (21-27); ABG Oxygen Saturation 96 % (95-98); ABG PCO2 38 mmHg (35-45); ABG PH 7.47 pH Units (7.32-7.45); ABG PO2 75 mmHg (85-104); ABG TCO2 28.9 mEq/L (20-26); Blood Gas FiO2 40 %
[2016-12-08] MEDS ORDERED: *HR* GlipiZIDE 5 MG TABLET PO SCH (17:00)
[2016-12-08] MEDS: MethylPREDNISolone 40 MG/ML VIAL IVP SCH (18:06)
[2016-12-08] MEDS: Aspirin Enteric Coated 81 MG Tablet PO SCH (20:16)
[2016-12-08] MEDS ORDERED: D5% in Water 1,000 ML IV PRN (21:39)
[2016-12-08] MEDS ORDERED: Insulin DETEMIR 100 UNIT/ML X5UNITS SQ SCH (21:45)
[2016-12-09] MEDS: Insulin LISPRO 300 UNITS/3 ML VIAL SQ SCH ×6 (00:45→20:55)
[2016-12-09] MEDS: MethylPREDNISolone 40 MG/ML VIAL IVP SCH ×3 (00:50→16:37)
[2016-12-09] MEDS: Ipratropium/Albuterol Neb 3 ML IH SCH ×4 (04:13→22:02)
[2016-12-09 05:17] LABS: Basophils % 0.2 %; Hematocrit 29.7 % (37.5-50.1); Immature Granulocytes % 1.7 % (0-4); Lymphocytes # 0.6 K/mcL (0.6-4.6); Lymphocytes % 10.6 %; Mean Corpuscular HGB Conc 33.7 g/dL (31.6-35.5); Mean Corpuscular Hemoglobin 28.2 pg (28.0-33.3); Mean Corpuscular Volume 83.7 fL (83.0-100.0); Mean Platelet Volume 10.4 fL (9.4-12.4); Monocytes # 0.2 K/mcL (0.0-1.3); Monocytes % 2.8 %; Neutrophils # 5.1 K/mcL (1.6-8.9); Platelet Count 221 K/mcL (140-400); Red Blood Count 3.55 M/mcL (4.19-5.50); Red Cell Distribution Width 13.9 % (11.5-14.5); Segmented Neutrophils % 84.7 %
[2016-12-09 05:31] LABS: BUN/Creatinine Ratio 19 (6-26); Calcium 8.6 mg/dL (8.6-10.8); Carbon Dioxide 25 mEq/L (19-29); Chloride 100 mEq/L (98-109); Glucose 404 mg/dL (70-99); Osmolality,Calculated 303 (280-300); Potassium 4.1 mEq/L (3.5-4.5); Sodium 136 mEq/L (136-145); eGFR For African Americans > 60 (> 60); eGFR For Non-African Americans 53 (> 60)
[2016-12-09 05:32] LABS: Blood Urea Nitrogen 24 mg/dL (8-26)
--- NOTE | 2016-12-09 08:23 | Internal Med Progress Note ---
<Josh Nicole - Last Filed: 12/09/16 16:43> Date of Encounter: 12/09/16 Time of Encounter: 08:21 - Assessment and plan (1) Acute respiratory failure with hypoxia Current Visit: Yes Status: Acute Assessment and plan: -Likely secondary to pulmonary edema due to acute systolic and diastolic CHF exacerbation -Continue Lasix, strict Is and Os and daily weight -Patient had elevated troponins, originally at 0.11, but ow down to 0.05 - likely due to demand ischemia. Echo was obtained with no abnormalities noted. -Continue telemetry -Continue oxygen and breathing treatments with Duoneb -Patient will need to stay the night. Possible discharge on Sunday. (2) Acute exacerbation of chronic obstructive pulmonary disease (COPD) Current Visit: Yes Status: Acute Assessment and plan: Continue prednisone and oxgen therapy Continue duoneb treatments Started rocephin for COPD exacerbation (3) Acute exacerbation of CHF (congestive heart failure) Current Visit: Yes Status: Acute Assessment and plan: Continue lasix, and cardizem Strict Is and Os and daily weight Qualifiers: Congestive heart failure type: unspecified congestive heart failure type Qualified Code(s): I50.9 - Heart failure, unspecified (4) Asbestos exposure Current Visit: Yes Status: Acute Assessment and plan: -CT of chest shows thickening of pleura (5) Diabetes Current Visit: No Status: Acute Assessment and plan: -Blood sugars elevated. Likely due to steroid use. -Patient switched to levimir/humalog -Continue to monitor and make adjustments. -Patient remains hyperglycemic. Insulin adjusted on 12/09 Qualifiers: Diabetes mellitus type: type 2 Diabetes mellitus complication status: with neurologic complications Diabetes mellitus complication detail: with polyneuropathy Diabetes mellitus buttermaker helper insulin use: without detention use Qualified Code(s): E11.42 - Type 2 diabetes mellitus with diabetic polyneuropathy (6) DVT prophylaxis Current Visit: Yes Status: Acute Assessment and plan: Continue with lovanox 40 mg SQ QD (7) Constipation Current Visit: Yes Status: Acute Assessment and plan: -Patient complains of mild abdominal pain. Patient is urinating. No bladder scan needed. -No BM in 4 days. Patient appears comfortable in bed -Will start scheduled colase. Qualifiers: Constipation type: slow transit constipation Qualified Code(s): K59.01 - Slow transit constipation - Time Spent With Patient 25 - 35 minutes - Subjective Interval history: Patient doing well today. Feels better today than yesterday. Resting comfortably on his bipap. Denies SOB, CP, abdominal pain. Has not had a bowel movement. is urinating normally. - Constitutional Vitals: Temp Pulse Resp BP Pulse Ox 97.2 F L 53 18 108/71 98 12/09/16 07:09 12/09/16 07:09 12/09/16 07:09 12/09/16 07:09 12/09/16 07:09 General appearance: Present: cooperative, A&O X 3, pleasant, answers questions appropriately - Respiratory Respiratory exam: Present: wheezes (mild. Improved from yesterday) - Cardiovascular Cardiovascular exam: Present: RRR. Absent: diastolic murmur, systolic murmur - GI/Abdominal GI/Abdominal exam: Present: soft, no peritoneal signs. Absent: tenderness - Extremities Exam Extremities exam: Absent: calf tenderness, cyanotic, mottling - Neurological Exam Neurological exam: Present: alert, oriented X3 - Psychiatric Psychiatric exam: Present: normal affect, normal mood Internal Medicine: Result - Labs CBC & Chem 7: 12/09/16 04:41 12/09/16 04:41 Labs: Short CBC 12/08/16 12/09/16 Range/Units 09:28 04:41 WBC 7.9 6.0 (4.3-11.1) K/mcL Hgb 10.7 L 10.0 L (12.9-16.9) g/dL Hct 32.2 L 29.7 L (37.5-50.1) % Plt Count 212 221 (140-400) K/mcL Neutrophils # 6.2 5.1 (1.6-8.9) K/mcL BMP 12/09/16 04:41 Sodium 136 Potassium 4.1 Chloride 100 Carbon Dioxide 25 BUN 24 D Creatinine 1.29 H Glucose 404 H Calcium 8.6 Cardiac Enzymes 12/08/16 Range/Units 09:28 Troponin I 0.05 H* (0-0.03) ng/mL - ABG Interpretation ABG results: ABG ABG pH 7.47 pH Units (7.32-7.45) H 12/08/16 11:46 ABG pCO2 38 mmHg (35-45) 12/08/16 11:46 ABG pO2 75 mmHg (85-104) L 12/08/16 11:46 ABG O2 Saturation 96 % (95-98) 12/08/16 11:46 PT/INR, D-dimer PT 13.1 Seconds (9.4-12.1) H 12/07/16 07:46 - VTE Documentation of Mechanical Device: Intermittent pneumatic compression device Consult Discharge Plan - Plan [facility]errals: [facility] [Primary Care Provider[facility] - <Stan Díaz - Last Filed: 12/09/16 17:20> Date of Encounter: 12/09/16 - Assessment and plan (1) Acute on chronic respiratory failure with hypoxemia Current Visit: Yes Status: Acute Assessment and plan: Weaning oxygen as able. (2) Acute respiratory failure with hypoxia Current Visit: Yes Status: Acute (3) Acute exacerbation of chronic obstructive pulmonary disease (COPD) Current Visit: Yes Status: Acute (4) Systolic CHF Current Visit: Yes Status: Acute Qualifiers: Heart failure chronicity: acute on chronic Qualified Code(s): I50.23 - Acute on chronic systolic (congestive) heart failure (5) Diabetes Current Visit: No Status: Acute Qualifiers: Diabetes mellitus type: type 2 Diabetes mellitus complication status: with neurologic complications Diabetes mellitus complication detail: with polyneuropathy Diabetes mellitus buttermaker helper insulin use: without detention use Qualified Code(s): E11.42 - Type 2 diabetes mellitus with diabetic polyneuropathy (6) Constipation Current Visit: Yes Status: Acute Qualifiers: Constipation type: slow transit constipation Qualified Code(s): K59.01 - Slow transit constipation - Constitutional Vitals: Temp Pulse Resp BP Pulse Ox 97.9 F 93 17 145/81 93 L 12/09/16 16:23 12/09/16 16:23 12/09/16 16:23 12/09/16 16:23 12/09/16 16:23 Internal Medicine: Result - Labs CBC & Chem 7: 12/09/16 04:41 12/09/16 04:41 Labs: Short CBC 12/09/16 Range/Units 04:41 WBC 6.0 (4.3-11.1) K/mcL Hgb 10.0 L (12.9-16.9) g/dL Hct 29.7 L (37.5-50.1) % Plt Count 221 (140-400) K/mcL Neutrophils # 5.1 (1.6-8.9) K/mcL BMP 12/09/16 04:41 Sodium 136 Potassium 4.1 Chloride 100 Carbon Dioxide 25 BUN 24 D Creatinine 1.29 H Glucose 404 H Calcium 8.6 - ABG Interpretation ABG results: ABG ABG pH 7.47 pH Units (7.32-7.45) H 12/08/16 11:46 ABG pCO2 38 mmHg (35-45) 12/08/16 11:46 ABG pO2 75 mmHg (85-104) L 12/08/16 11:46 ABG O2 Saturation 96 % (95-98) 12/08/16 11:46 PT/INR, D-dimer PT 13.1 Seconds (9.4-12.1) H 12/07/16 07:46 - Attending Attestation I examined this patient and my medical decision-making was reviewed with the Resident Physician on 12/09/16. I agree with the documented findings, disposition and treatment plan as described except to the extent set forth below. Mr. Mcknight is currently admitted for acute on chronic hypoxic resp failure. He remains moderate to high risk due to potential of worsening respiratory symptoms. Mr. Mcknight is feeling OK. He is not coughing and has been moving around some. No fever. He is on high flow oxygen but less than yesterday. His appetite is OK. No GI symptoms. Exam Alert. Comfortable Up in chair - talkative. Heart reg - not tachycardic Lungs with bibasilar rales. No wheeze. I/P 1. Acute on chronic hypoxic resp failure 2. Acute exac COPD 3. Acute exac CHF. Pt family reports a decrease in BP with standing. Will assess and hold diuresis if needed. Further diagnoses and plan as above.
[2016-12-09] MEDS: Gabapentin 300 MG CAPSULE PO SCH ×2 (09:56→20:53)
[2016-12-09] MEDS: Furosemide 40 MG/4 ML VIAL IV SCH ×2 (09:56→16:37)
[2016-12-09] MEDS: Diltiazem CD (24hr) 240 MG CAPSULE PO SCH (09:56)
[2016-12-09] MEDS: *HR* Enoxaparin 40 MG/0.4 ML SYRINGE SQ SCH (09:57)
[2016-12-09] MEDS: Aspirin Enteric Coated 81 MG Tablet PO SCH (20:52)
[2016-12-09] MEDS: Insulin DETEMIR 100 UNIT/ML X5UNITS SQ SCH (20:59)
[2016-12-10] MEDS: MethylPREDNISolone 40 MG/ML VIAL IVP SCH ×4 (00:45→23:20)
[2016-12-10] MEDS: Ipratropium/Albuterol Neb 3 ML IH SCH ×4 (04:22→22:25)
[2016-12-10 06:23] LABS: Hemoglobin A1C 9.2 %
[2016-12-10 06:26] LABS: Basophils % 0.1 %; Hemoglobin 9.2 g/dL (12.9-16.9); Immature Granulocytes % 1.8 % (0-4); Lymphocytes % 3.9 %; Mean Corpuscular HGB Conc 32.9 g/dL (31.6-35.5); Mean Corpuscular Hemoglobin 27.6 pg (28.0-33.3); Mean Corpuscular Volume 84.1 fL (83.0-100.0); Mean Platelet Volume 10.6 fL (9.4-12.4); Monocytes # 0.6 K/mcL (0.0-1.3); Monocytes % 2.9 %; Platelet Count 280 K/mcL (140-400); Red Blood Count 3.33 M/mcL (4.19-5.50); Segmented Neutrophils % 91.3 %
[2016-12-10 06:29] LABS: Calcium 8.1 mg/dL (8.6-10.8); Magnesium 1.8 mg/dL (1.6-2.6); Potassium 4.3 mEq/L (3.5-4.5)
[2016-12-10 06:37] LABS: Lymphocytes # 0.8 K/mcL (0.6-4.6); Neutrophils # 17.5 K/mcL (1.6-8.9)
[2016-12-10] MEDS ORDERED: Insulin LISPRO 300 UNITS/3 ML VIAL SQ SCH (07:30)
[2016-12-10] MEDS: Diltiazem CD (24hr) 240 MG CAPSULE PO SCH (07:50)
[2016-12-10] MEDS: Gabapentin 300 MG CAPSULE PO SCH ×2 (07:50→20:42)
[2016-12-10] MEDS: *HR* Enoxaparin 40 MG/0.4 ML SYRINGE SQ SCH (07:51)
[2016-12-10] MEDS: Insulin LISPRO 300 UNITS/3 ML VIAL SQ SCH ×7 (07:52→21:21)
[2016-12-10] MEDS: Furosemide 40 MG/4 ML VIAL IV SCH (07:53)
--- NOTE | 2016-12-10 08:20 | Internal Med Progress Note ---
<Josh Nicole - Last Filed: 12/10/16 10:58> Date of Encounter: 12/10/16 Time of Encounter: 07:15 - Assessment and plan (1) Acute respiratory failure with hypoxia Current Visit: Yes Status: Acute Assessment and plan: -Likely secondary to COPD exacerbation -Patient had elevated troponins, originally at 0.11,now0.05 - likely due to demand ischemia. Echo was obtained with no abnormalities noted. -Continue telemetry -Continue oxygen and breathing treatments with Duoneb -Patient will need to stay the night. Possible discharge on Sunday. (2) Acute exacerbation of chronic obstructive pulmonary disease (COPD) Current Visit: Yes Status: Acute Assessment and plan: -Continue prednisone and oxygen therapy. Patient on 3L NC. -Continue duoneb treatments -Continue rocephin (3) Asbestos exposure Current Visit: Yes Status: Acute Assessment and plan: -CT of chest shows thickening of pleura (4) Diabetes Current Visit: No Status: Acute Assessment and plan: -Blood sugars elevated. Likely due to steroid use. -Patient switched to levimir/humalog -Continue to monitor and make adjustments. -Patient remains hyperglycemic. Insulin adjusted on 12/09 Qualifiers: Diabetes mellitus type: type 2 Diabetes mellitus complication status: with neurologic complications Diabetes mellitus complication detail: with polyneuropathy Diabetes mellitus intermediate insulin use: without intermodal customer service use Qualified Code(s): E11.42 - Type 2 diabetes mellitus with diabetic polyneuropathy (5) DVT prophylaxis Current Visit: Yes Status: Acute Assessment and plan: Continue with lovanox 40 mg SQ QD (6) Constipation Current Visit: Yes Status: Acute Assessment and plan: -Patient denies abdominal pain. Patient is urinating. -Will continue with colase. Qualifiers: Constipation type: slow transit constipation Qualified Code(s): K59.01 - Slow transit constipation - Subjective Interval history: Patient doing well today. Feels better today than yesterday. Resting comfortably on nasal cannula, which was recently decreased to 3L. He is joking and smiling. Denies SOB, CP, abdominal pain, cough. - Constitutional Vitals: Temp Pulse Resp BP Pulse Ox 98.0 F 69 19 136/75 98 12/10/16 07:41 12/10/16 07:41 12/10/16 07:41 12/10/16 07:41 12/10/16 07:41 General appearance: Present: cooperative, A&O X 3, pleasant, answers questions appropriately - Respiratory Respiratory exam: Present: wheezes (mild ) - Cardiovascular Cardiovascular exam: Present: RRR. Absent: diastolic murmur, systolic murmur - GI/Abdominal GI/Abdominal exam: Present: soft, no peritoneal signs. Absent: distended, tenderness - Neurological Exam Neurological exam: Present: alert - Psychiatric Psychiatric exam: Present: anxious Internal Medicine: Result - Labs CBC & Chem 7: 12/10/16 05:39 12/10/16 05:39 Labs: Short CBC 12/10/16 Range/Units 05:39 WBC 19.2 H D (4.3-11.1) K/mcL Hgb 9.2 L (12.9-16.9) g/dL Hct 28.0 L (37.5-50.1) % Plt Count 280 (140-400) K/mcL Neutrophils # 17.5 H (1.6-8.9) K/mcL BMP 12/10/16 05:39 Sodium 135 L Potassium 4.3 Chloride 100 Carbon Dioxide 25 BUN 32 H Creatinine 1.42 H Glucose 360 H Calcium 8.1 L - ABG Interpretation ABG results: ABG ABG pH 7.47 pH Units (7.32-7.45) H 12/08/16 11:46 ABG pCO2 38 mmHg (35-45) 12/08/16 11:46 ABG pO2 75 mmHg (85-104) L 12/08/16 11:46 ABG O2 Saturation 96 % (95-98) 12/08/16 11:46 PT/INR, D-dimer PT 13.1 Seconds (9.4-12.1) H 12/07/16 07:46 - VTE Documentation of Mechanical Device: Intermittent pneumatic compression device Consult Discharge Plan - Plan [facility]: [facility] Provider[facility] - <Stan Díaz - Last Filed: 12/10/16 18:04> Date of Encounter: 12/10/16 - Assessment and plan (1) Acute on chronic respiratory failure with hypoxemia Current Visit: Yes Status: Acute (2) Acute respiratory failure with hypoxia Current Visit: Yes Status: Acute (3) Acute exacerbation of chronic obstructive pulmonary disease (COPD) Current Visit: Yes Status: Acute (4) Systolic CHF Current Visit: Yes Status: Acute Qualifiers: Heart failure chronicity: acute on chronic Qualified Code(s): I50.23 - Acute on chronic systolic (congestive) heart failure (5) Diabetes Current Visit: No Status: Acute Qualifiers: Diabetes mellitus type: type 2 Diabetes mellitus complication status: with neurologic complications Diabetes mellitus complication detail: with polyneuropathy Diabetes mellitus intermodal customer service insulin use: without intermodal customer service use Qualified Code(s): E11.42 - Type 2 diabetes mellitus with diabetic polyneuropathy (6) Constipation Current Visit: Yes Status: Acute Qualifiers: Constipation type: slow transit constipation Qualified Code(s): K59.01 - Slow transit constipation - Constitutional Vitals: Temp Pulse Resp BP Pulse Ox 97.7 F 80 16 145/70 93 L 12/10/16 16:08 12/10/16 16:08 12/10/16 16:08 12/10/16 16:08 12/10/16 16:08 Internal Medicine: Result - Labs CBC & Chem 7: 12/10/16 05:39 12/10/16 05:39 Labs: Short CBC 12/10/16 Range/Units 05:39 WBC 19.2 H D (4.3-11.1) K/mcL Hgb 9.2 L (12.9-16.9) g/dL Hct 28.0 L (37.5-50.1) % Plt Count 280 (140-400) K/mcL Neutrophils # 17.5 H (1.6-8.9) K/mcL BMP 12/10/16 05:39 Sodium 135 L Potassium 4.3 Chloride 100 Carbon Dioxide 25 BUN 32 H Creatinine 1.42 H Glucose 360 H Calcium 8.1 L - ABG Interpretation ABG results: ABG ABG pH 7.47 pH Units (7.32-7.45) H 12/08/16 11:46 ABG pCO2 38 mmHg (35-45) 12/08/16 11:46 ABG pO2 75 mmHg (85-104) L 12/08/16 11:46 ABG O2 Saturation 96 % (95-98) 12/08/16 11:46 PT/INR, D-dimer PT 13.1 Seconds (9.4-12.1) H 12/07/16 07:46 - Attending Attestation I examined this patient and my medical decision-making was reviewed with the Resident Physician on 12/10/16. I agree with the documented findings, disposition and treatment plan as described except to the extent set forth below. Mr. Mcknight is currently admitted for acute on chronic hypoxic resp failure and acute exac COPD and pulmonary edema. He remains moderate to high risk due to continued need for high flow oxygen and potential respiratory worsening. Mr. Mcknight continues to slowly improve daily. He is able to be on less oxygen today. His daughter is visiting and feels he is improving. Denies CP. No GI symptoms. Exam Alert. Comfortable Heart reg Lungs with scattered wheeze but less than yesterday Abd soft I/P 1. Acute on chronic hypoxic resp failure 2. Acute COPD 3. CHF Further diagnoses and plan as above.
[2016-12-10] MEDS: Aspirin Enteric Coated 81 MG Tablet PO SCH (20:42)
[2016-12-10] MEDS: Insulin DETEMIR 100 UNIT/ML X5UNITS SQ SCH (20:44)
[2016-12-11 04:25] LABS: Basophils % 0.2 %; Hematocrit 29.1 % (37.5-50.1); Hemoglobin 9.7 g/dL (12.9-16.9); Immature Granulocytes % 4.3 % (0-4); Lymphocytes % 4.4 %; Mean Corpuscular HGB Conc 33.3 g/dL (31.6-35.5); Mean Corpuscular Volume 84.1 fL (83.0-100.0); Mean Platelet Volume 10.5 fL (9.4-12.4); Monocytes # 0.7 K/mcL (0.0-1.3); Monocytes % 3.2 %; Platelet Count 299 K/mcL (140-400); Red Blood Count 3.46 M/mcL (4.19-5.50); Red Cell Distribution Width 14.1 % (11.5-14.5); Segmented Neutrophils % 87.9 %
[2016-12-11] MEDS: Ipratropium/Albuterol Neb 3 ML IH SCH ×3 (04:34→15:49)
[2016-12-11 04:48] LABS: BUN/Creatinine Ratio 32 (6-26); Blood Urea Nitrogen 34 mg/dL (8-26); Calcium 8.6 mg/dL (8.6-10.8); Carbon Dioxide 25 mEq/L (19-29); Chloride 103 mEq/L (98-109); Glucose 224 mg/dL (70-99); Osmolality,Calculated 301 (280-300); Potassium 4.7 mEq/L (3.5-4.5); Sodium 138 mEq/L (136-145); eGFR For African Americans > 60 (> 60); eGFR For Non-African Americans > 60 (> 60)
[2016-12-11] MEDS: MethylPREDNISolone 40 MG/ML VIAL IVP SCH (08:05)
[2016-12-11] MEDS: *HR* Enoxaparin 40 MG/0.4 ML SYRINGE SQ SCH (08:05)
[2016-12-11] MEDS: Gabapentin 300 MG CAPSULE PO SCH (08:05)
[2016-12-11] MEDS: Diltiazem CD (24hr) 240 MG CAPSULE PO SCH (08:05)
[2016-12-11] MEDS: Insulin LISPRO 300 UNITS/3 ML VIAL SQ SCH ×4 (08:06→13:06)
--- NOTE | 2016-12-11 09:57 | Discharge Summary ---
<Josh Nicole - Last Filed: 12/11/16 15:07> Date of Encounter: 12/11/16 - Discharge Diagnosis (1) Acute respiratory failure with hypoxia Priority: Primary Status: Resolved Comments: -Resolved. -Patient back to baseline. -Secondary to COPD exacerbation. Discharging patient on abx, predisone, albuterol/ipratropium -Concern for leukocytosis. Patient asymptomatic, repeat CXR unchanged. Instructed patient to get lab work done at [facility] ( get CBC with differential) to evaluate for increase in WBC count. WBC count currently 22. -Patient has home health (2) Acute exacerbation of chronic obstructive pulmonary disease (COPD) Priority: Primary Status: Acute (3) Asbestos exposure Priority: Primary Status: Acute (4) Diabetes Priority: Primary Status: Acute Comments: -May restart on original home medication. -Patient has mass on brain. Discussed personally with patient. Is aware. Does not wish treatment. Qualifiers: Diabetes mellitus type: type 2 Diabetes mellitus complication status: with neurologic complications Diabetes mellitus complication detail: with polyneuropathy Diabetes mellitus mcfp insulin use: without mcfp use Qualified Code(s): E11.42 - Type 2 diabetes mellitus with diabetic polyneuropathy (5) DVT prophylaxis Priority: Primary Status: Acute (6) Constipation Priority: Primary Status: Resolved Comments: -Had normal BM today. Qualifiers: Constipation type: slow transit constipation Qualified Code(s): K59.01 - Slow transit constipation - Discharge Medications Prescriptions: Amoxicillin/Clavulanate [Augmentin] 875 mg PO BIDWM #10 tablet Ipratropium/Albuterol Sulfate [Combivent Respimat Inhal [place]] 4 gm IH Q6H PRN # 1 aer.w.adap PRN Reason: Shortness Of Breath PredniSONE [Deltasone] 40 mg PO DAILY #7 tablet Home Medications: Alfuzosin HCl [Uroxatral] 10 mg PO QPM 02/14/16 [History] Aspirin [Adult Low Dose Aspirin EC] 81 mg PO HS 02/14/16 [History] Gabapentin [Neurontin] 300 mg PO BID 02/14/16 [History] GlipiZIDE [Glucotrol] 5 mg PO BID 02/14/16 [History] Guaifenesin 400 mg PO BID 02/14/16 [History] Sertraline [Zoloft] 100 mg PO QAM 02/14/16 [History] Acetaminophen [Tylenol] 650 mg PO TID PRN 12/07/16 [History] Albuterol Neb [Proventil Neb] 2.5 mg IH QID PRN 12/07/16 [History] Atorvastatin [Lipitor] 10 mg PO HS 12/07/16 [History] Bisacodyl [Dulcolax] 20 mg PO DAILY PRN 12/07/16 [History] Budesonide/Formoterol 160/4.5 [Symbicort 160/4.5] 2 puff IH BIDR 12/07/16 [ History] Chlorhexidine Gluconate [Peridex] 15 ml MM BID 12/07/16 [History] Diltiazem HCl [Diltiazem 24Hr Cd] 240 mg PO DAILY 12/07/16 [History] Enoxaparin [Lovenox] 40 mg SQ DAILY 12/07/16 [History] Furosemide [Lasix] 20 mg PO DAILY 12/07/16 [History] Polyethylene Glycol 3350 [MiraLAX] 17 gm PO DAILY PRN 12/07/16 [History] Potassium Chloride [Klor-Con 10] 10 meq PO DAILY 12/07/16 [History] Tiotropium [Spiriva] 18 mcg IH 0700 12/07/16 [History] Amoxicillin/Clavulanate [Augmentin] 875 mg PO BIDWM #10 tablet 12/11/16 [Rx] Docusate [Colace] 100 mg PO BID capsule 12/11/16 [Rx] Ipratropium/Albuterol Sulfate [Combivent Respimat Inhal [place]] 4 gm IH Q6H PRN # 1 aer.w.adap 12/11/16 [Rx] Omeprazole [PriLOSEC] 20 mg PO DAILY@0630 capsule. 12/11/16 [Rx] PredniSONE [Deltasone] 40 mg PO DAILY #7 tablet 12/11/16 [Rx] Allergies/Adverse Reactions: Allergies losartan Allergy (Verified 12/07/16 07:33) Hives Date of admission: 12/07/16 11:47 [facility] Consults: 12/07/16 13:46 Consult to Nutrition [CONS] Routine Comment: Consulting Provider: NUTRITION Reason for Dietary Consult: Supplemental Nutrition Consult to Printer Floor Covering Assistant [CONS] Routine Reason for SW Consult: Possible rehab 12/08/16 11:07 Consult to Occupational Therapy [CONS] Routine Comment: Evaluate, develop and implement POC 12/08/16 13:23 Consult to Physical Therapy [CONS] Routine Comment: Evaluate, develop and implement POC - Patient Status Disposition: Home Health Service Condition: Fair Functional capacity at discharge: independent ambulation Overall status at discharge: patient is back to baseline - Discharge Instructions Instructions: Heart Failure (DC), Acute Respiratory Distress Syndrome (DC), Chronic Obstructive Pulmonary Disease (DC), COPD Exacerbation, Knowledge Manager ( GEN) Follow Up With: [facility],PCP [Primary Care Provider] - 12/14/16 8:00 am (Please return to the [facility] hospital to have CBC with differential drawn in the next 72 hours. Please followup with PCP in next 4-5days. ) - Diet and Activity Activity: increase activity as tolerated Diet: advance to your usual diet Interval History: Patient up and out of bed and on nasal cannula 2L and tolerating it well. Feels well enough to go home. No cough, CP, SOB. DId have bowel movement that was regular and non bloody. Hospital course: Mr. Mcknight is a 86 year old male admitted with acute respiratory exacerbation CHF vs COPD. Patient BNP <500, however patient did improve with lasixs. Patient had cough and elevated white count with previous history of COPD exacerbation. Was not intubated, but on Bipap. Abx and steroids started. CTA, ECHO, CT head done. Patients condition improved daily to where he feels he is back to baseline and on Nasal cannula 2L. He has home oxygen already set up and home health aid. He did have an elevated WBC count. He is asymptomatic and his lungs are CTAB. Repeat CXR today shows no changes. Went over prescription medicine with patient , instructed him to have his blood drawn by PCP in next 72 hours to check WBC count, if he has new or worsening symptoms to call PCP or return to the ED- discussion made at bedside. Patient is aware he has a mass on his head CT and has declined treatment for it. - Time Spent with Patient Total time spent providing and/or coordinating discharge services: Greater than 30 minutes - Constitutional Vitals: Temp Pulse Resp BP Pulse Ox 97.5 F L 73 16 143/68 94 L 12/11/16 08:01 12/11/16 08:01 12/11/16 08:01 12/11/16 08:01 12/11/16 08:01 General appearance: Present: cooperative, A&O X 3, pleasant, answers questions appropriately - Head Head exam: Present: atraumatic, normal inspection - Respiratory Respiratory exam: Present: CTAB. Absent: respiratory distress, rhonchi, wheezes - Cardiovascular Cardiovascular exam: Present: RRR. Absent: diastolic murmur, systolic murmur - GI/Abdominal GI/Abdominal exam: Present: soft, no peritoneal signs. Absent: distended, tenderness - Neurological Exam Neurological exam: Present: oriented X3, no focal deficits. Absent: facial droop, speech deficit - Psychiatric Psychiatric exam: Present: normal affect, normal mood - VTE Documentation of Mechanical Device: Intermittent pneumatic compression device <Stan Díaz - Last Filed: 12/11/16 17:18> Date of Encounter: 12/11/16 Time of Encounter: 11:30 - Discharge Diagnosis (1) Acute on chronic respiratory failure with hypoxemia Status: Acute (2) Acute respiratory failure with hypoxia Status: Resolved (3) Acute exacerbation of chronic obstructive pulmonary disease (COPD) Status: Acute (4) Systolic CHF Priority: Secondary Status: Acute Qualifiers: Heart failure chronicity: acute on chronic Qualified Code(s): I50.23 - Acute on chronic systolic (congestive) heart failure (5) Diabetes Status: Acute Qualifiers: Diabetes mellitus type: type 2 Diabetes mellitus complication status: with neurologic complications Diabetes mellitus complication detail: with polyneuropathy Diabetes mellitus mcfp insulin use: without mcfp use Qualified Code(s): E11.42 - Type 2 diabetes mellitus with diabetic polyneuropathy (6) Constipation Status: Resolved Qualifiers: Constipation type: slow transit constipation Qualified Code(s): K59.01 - Slow transit constipation Date of admission: 12/07/16 11:47 [facility] physician[facility] Consults: 12/07/16 13:46 Consult to Nutrition [CONS] Routine Comment: Consulting Provider: NUTRITION Reason for Dietary Consult: Supplemental Nutrition Consult to Printer Floor Covering Assistant [CONS] Routine Reason for SW Consult: Possible rehab 12/08/16 11:07 Consult to Occupational Therapy [CONS] Routine Comment: Evaluate, develop and implement POC 12/08/16 13:23 Consult to Physical Therapy [CONS] Routine Comment: Evaluate, develop and implement POC Discharging clinician: Stan Díaz Anticipated date of discharge: 12/11/16 Hospital course: Mr. Mcknight is a 86 year old male - Time Spent with Patient Total time spent providing and/or coordinating discharge services: 38min - Constitutional Vitals: Temp Pulse Resp BP Pulse Ox 98 F 83 16 114/55 94 L 12/11/16 15:23 12/11/16 15:23 12/11/16 15:23 12/11/16 15:23 12/11/16 15:23 - Attending Attestation I examined this patient and my medical decision-making was reviewed with the Resident Physician on 12/11/16. I agree with the documented findings, disposition and treatment plan as described except to the extent set forth below. Mr. Mcknight feels well. He is on his home oxygen amount. No worsening dyspnea. No pain. WBC elevated today - most likely steroids. Repeat CXR negative. Exam alert. Comfortable Heart reg Lungs diminished but clear Abd soft Plan D/C home today [facility] Needs CBC checked in 2 days to reeval WBC.
[2016-12-11 13:34] LABS: Basophils % 0.2 %; Hematocrit 30.7 % (37.5-50.1); Lymphocytes # 0.8 K/mcL (0.6-4.6); Lymphocytes % 3.6 %; Mean Corpuscular HGB Conc 32.6 g/dL (31.6-35.5); Mean Corpuscular Hemoglobin 28.1 pg (28.0-33.3); Mean Corpuscular Volume 86.2 fL (83.0-100.0); Mean Platelet Volume 10.5 fL (9.4-12.4); Monocytes # 0.8 K/mcL (0.0-1.3); Monocytes % 3.7 %; Neutrophils # 20.4 K/mcL (1.6-8.9); Platelet Count 329 K/mcL (140-400); Red Blood Count 3.56 M/mcL (4.19-5.50); Segmented Neutrophils % 89.5 %
[2016-12-11 15:26] VITALS: BP 114/55
--- NOTE | 2016-12-11 15:53 | Physician Discharge Referral ---
Home Health/Hosp Referral Info Transfer to: Home Health Attending Provider: Dr. Stan Díaz Provider in Charge Post Discharge: PCP (Patient admitted for COPD exacerbation. Home med rx predisone, abx, combivent.) - Diagnosis (1) Acute respiratory failure with hypoxia Priority: Primary Status: Resolved (2) Acute exacerbation of chronic obstructive pulmonary disease (COPD) Priority: Primary Status: Acute (3) Asbestos exposure Priority: Primary Status: Acute (4) Diabetes Priority: Primary Status: Acute (5) DVT prophylaxis Priority: Secondary Status: Acute (6) Constipation Priority: Secondary Status: Resolved - Respiratory Orders Oxygen / L per min (2L during the day 3-4L at night pending patient oxygen status) Smoking Cessation: Smoking cessation has been advised. For more information, call the [employer] Quit Line at 0-433-VCSK-NOW. - Dressing/Wound Care Site: None - Diet/Nutrition Diet/Nutrition Orders: Cardiac - Activity Activity Orders: Ambulate - Services Needed Following services are medically necessary services: Home Health Aide, Physical Therapy Home Care Orders: Patient recently discharge for COPD exacerbation. Make sure patient is taking abx, predisone and breathing treatments as needed. -Patient will need repeat CBC in 72 hours to assess for leukocytosis. - Transfer Medications Prescriptions: Amoxicillin/Clavulanate [Augmentin] 875 mg PO BIDWM #10 tablet Ipratropium/Albuterol Sulfate [Combivent Respimat Inhal [place]] 4 gm IH Q6H PRN # 1 aer.w.adap PRN Reason: Shortness Of Breath PredniSONE [Deltasone] 40 mg PO DAILY #7 tablet Home Medications: Alfuzosin HCl [Uroxatral] 10 mg PO QPM 02/14/16 [History] Aspirin [Adult Low Dose Aspirin EC] 81 mg PO HS 02/14/16 [History] Gabapentin [Neurontin] 300 mg PO BID 02/14/16 [History] GlipiZIDE [Glucotrol] 5 mg PO BID 02/14/16 [History] Guaifenesin 400 mg PO BID 02/14/16 [History] Sertraline [Zoloft] 100 mg PO QAM 02/14/16 [History] Acetaminophen [Tylenol] 650 mg PO TID PRN 12/07/16 [History] Albuterol Neb [Proventil Neb] 2.5 mg IH QID PRN 12/07/16 [History] Atorvastatin [Lipitor] 10 mg PO HS 12/07/16 [History] Bisacodyl [Dulcolax] 20 mg PO DAILY PRN 12/07/16 [History] Budesonide/Formoterol 160/4.5 [Symbicort 160/4.5] 2 puff IH BIDR 12/07/16 [ History] Chlorhexidine Gluconate [Peridex] 15 ml MM BID 12/07/16 [History] Diltiazem HCl [Diltiazem 24Hr Cd] 240 mg PO DAILY 12/07/16 [History] Enoxaparin [Lovenox] 40 mg SQ DAILY 12/07/16 [History] Furosemide [Lasix] 20 mg PO DAILY 12/07/16 [History] Polyethylene Glycol 3350 [MiraLAX] 17 gm PO DAILY PRN 12/07/16 [History] Potassium Chloride [Klor-Con 10] 10 meq PO DAILY 12/07/16 [History] Tiotropium [Spiriva] 18 mcg IH 0700 12/07/16 [History] Amoxicillin/Clavulanate [Augmentin] 875 mg PO BIDWM #10 tablet 12/11/16 [Rx] Docusate [Colace] 100 mg PO BID capsule 12/11/16 [Rx] Ipratropium/Albuterol Sulfate [Combivent Respimat Inhal [place]] 4 gm IH Q6H PRN # 1 aer.w.adap 12/11/16 [Rx] Omeprazole [PriLOSEC] 20 mg PO DAILY@0630 capsule. 12/11/16 [Rx] PredniSONE [Deltasone] 40 mg PO DAILY #7 tablet 12/11/16 [Rx] Allergies/Adverse Reactions: Allergies losartan Allergy (Verified 12/07/16 07:33) Hives Certification: Further, I certify that my clinical findings support that this patient is homebound (i.e. absences from home require considerable and taxing effort and are for medical reasons or jainism services or infrequently or short duration when for other reasons) because: Homebound Reason: Leaving home requires considerable and taxing effort due to condition Attestation: My signature below is to certify that this patient is under my care and that I, or nurse practitioner, or a physician's bacteriology research assistant working with me, has a face-to -face encounter with this patient.
[2016-12-11] MEDS ORDERED: predniSONE 20 MG TABLET PO SCH (17:00)
== END 2016-12-11 18:57 | disposition home health service (06) | DRG 291 ==
LOC: EMEROO 07:31 → 2NENU 11:47
PROVIDERS: ADMIT Internal Medicine; ATTEND Internal Medicine

== ENCOUNTER 2020-08-17 16:37 | Observation (INO) ==
[2020-08-17] MEDS ORDERED: Naloxone 0.4 MG/ML INJ IVP PRN ×2 (18:43→18:45)
[2020-08-17] MEDS ORDERED: Ondansetron 4 MG/2 ML VIAL IVP PRN (18:51)
[2020-08-17] MEDS ORDERED: Acetaminophen 325 MG TABLET PO PRN (18:51)
[2020-08-17 19:46] LABS: BUN/Creatinine Ratio 15 (6-26); Blood Urea Nitrogen 20 mg/dL (8-23); Carbon Dioxide 19 mEq/L (23-29); Chloride 108 mEq/L (98-107); Glucose 134 mg/dL (70-105); Magnesium 1.6 mg/dL (1.6-2.6); Osmolality,Calculated 285 (280-300); Potassium 4.1 mEq/L (3.5-5.1); Sodium 135 mEq/L (136-145); eGFR For African Americans > 60 (> 60); eGFR For Non-African Americans 52 (> 60)
[2020-08-17 22:08] LABS: Basophils % 0.2 %; Eosinophils # 0.1 K/mcL (0.0-0.6); Eosinophils % 1.5 %; Hematocrit 36.9 % (37.5-50.1); Hemoglobin 11.9 g/dL (12.9-16.9); Immature Granulocytes % 0.3 % (0-4); Lymphocytes # 1.1 K/mcL (0.6-4.6); Lymphocytes % 18.8 %; Mean Corpuscular HGB Conc 32.2 g/dL (31.6-35.5); Mean Corpuscular Hemoglobin 28.8 pg (28.0-33.3); Mean Corpuscular Volume 89.3 fL (83.0-100.0); Mean Platelet Volume 11.3 fL (9.4-12.4); Monocytes # 0.5 K/mcL (0.0-1.3); Monocytes % 8.9 %; Neutrophils # 4.2 K/mcL (1.6-8.9); Platelet Count 151 K/mcL (140-400); Red Blood Count 4.13 M/mcL (4.19-5.50); Red Cell Distribution Width 13.8 % (11.5-14.5); Segmented Neutrophils % 70.3 %
[2020-08-18] MEDS ORDERED: D5% in Water 1,000 ML IVC PRN (00:39)
[2020-08-18] MEDS ORDERED: *HR* Dextrose 50 % in Water (Vial) 50 ML VIAL IVP PRN (00:39)
[2020-08-18] MEDS ORDERED: Dextrose Gel 15 GM/37.5 ML TUBE PO PRN ×2 (00:39)
[2020-08-18] MEDS ORDERED: 0.9 % Sodium Chloride 1,000 ML IVC ONE (00:44)
[2020-08-18] MEDS: Melatonin 3 MG TABLET PO SCH ×2 (02:56→21:13)
[2020-08-18 03:48] LABS: Basophils % 0.2 %; Eosinophils % 0.7 %; Hematocrit 33.7 % (37.5-50.1); Immature Granulocytes % 0.4 % (0-4); Mean Corpuscular HGB Conc 32.6 g/dL (31.6-35.5); Mean Corpuscular Hemoglobin 28.8 pg (28.0-33.3); Mean Corpuscular Volume 88.2 fL (83.0-100.0); Mean Platelet Volume 11.6 fL (9.4-12.4); Monocytes # 0.6 K/mcL (0.0-1.3); Monocytes % 10.1 %; Platelet Count 156 K/mcL (140-400); Red Blood Count 3.82 M/mcL (4.19-5.50); Red Cell Distribution Width 13.7 % (11.5-14.5); Segmented Neutrophils % 71.6 %; White Blood Count 5.6 K/mcL (4.3-11.1)
[2020-08-18 04:08] LABS: BUN/Creatinine Ratio 18 (6-26); Blood Urea Nitrogen 23 mg/dL (8-23); Carbon Dioxide 21 mEq/L (23-29); Chloride 106 mEq/L (98-107); Glucose 136 mg/dL (70-105); Magnesium 1.5 mg/dL (1.6-2.6); Osmolality,Calculated 288 (280-300); Potassium 4.4 mEq/L (3.5-5.1); Sodium 136 mEq/L (136-145); eGFR For African Americans > 60 (> 60); eGFR For Non-African Americans 54 (> 60)
[2020-08-18] MEDS: Levothyroxine 25 MCG TABLET PO SCH (07:32)
[2020-08-18] MEDS: *HR* Heparin 5,000 UNIT/ML VIAL SQ SCH ×2 (07:32→17:34)
[2020-08-18] MEDS: Gabapentin 300 MG CAPSULE PO SCH (09:37)
[2020-08-18] MEDS: Dexamethasone 4 MG/ML VIAL IVP SCH (09:37)
[2020-08-18] MEDS: Insulin LISPRO 300 UNITS/3 ML VIAL SQ SCH ×3 (09:45→17:50)
[2020-08-18] MEDS: Tiotropium 18 MCG inhalation IH SCH (10:08)
[2020-08-18] MEDS: lisinopriL 5 MG TABLET PO SCH (17:35)
[2020-08-18] MEDS ORDERED: Aspirin 325 MG TABLET PO SCH (18:00)
[2020-08-18] MEDS ORDERED: DilTIAZem CD (24hr) 240 MG CAP.ER.24H PO SCH (18:00)
[2020-08-18] MEDS ORDERED: Insulin LISPRO 300 UNITS/3 ML VIAL SQ SCH (21:00)
[2020-08-18] MEDS: Budesonide/Formoterol 160/4.5 1 PUFF INH IH SCH (21:04)
[2020-08-19] MEDS: Levothyroxine 25 MCG TABLET PO SCH (05:27)
[2020-08-19] MEDS: *HR* Heparin 5,000 UNIT/ML VIAL SQ SCH (05:27)
[2020-08-19 06:06] LABS: Hematocrit 37.6 % (37.5-50.1); Hemoglobin 12.1 g/dL (12.9-16.9); Mean Corpuscular HGB Conc 32.2 g/dL (31.6-35.5); Mean Corpuscular Hemoglobin 28.5 pg (28.0-33.3); Mean Corpuscular Volume 88.7 fL (83.0-100.0); Platelet Count 184 K/mcL (140-400); Red Blood Count 4.24 M/mcL (4.19-5.50); Red Cell Distribution Width 13.5 % (11.5-14.5); White Blood Count 6.1 K/mcL (4.3-11.1)
[2020-08-19 06:28] LABS: Alanine Aminotransferase 20 Units/L (7-52); Albumin 3.6 g/dL (3.5-5.7); Albumin/Globulin Ratio 1.3 (1.1-2.2); Alkaline Phosphatase 47 Units/L (34-104); Aspartate Amino Transferase 19 Units/L (13-39); BUN/Creatinine Ratio 23 (6-26); Bilirubin,Total 0.5 mg/dL (0.3-1.0); Blood Urea Nitrogen 26 mg/dL (8-23); Calcium 8.6 mg/dL (8.6-10.3); Carbon Dioxide 21 mEq/L (23-29); Chloride 107 mEq/L (98-107); Globulin 2.8 g/dL (2.4-3.5); Glucose 161 mg/dL (70-105); Lactate Dehydrogenase 179 Units/L (140-271); Magnesium 1.9 mg/dL (1.6-2.6); Osmolality,Calculated 294 (280-300); Phosphorous 3.4 mg/dL (2.7-4.5); Potassium 4.1 mEq/L (3.5-5.1); Sodium 138 mEq/L (136-145); Total Protein 6.4 g/dL (6.4-8.9); eGFR For African Americans > 60 (> 60); eGFR For Non-African Americans > 60 (> 60)
[2020-08-19 06:44] LABS: Ferritin 419 ng/mL (20-250)
[2020-08-19 07:27] LABS: Adenovirus Not Detected (Not Detect); Coronavirus 229E Not Detected (Not Detect); Coronavirus HKU1 Not Detected (Not Detect); Coronavirus NL63 Not Detected (Not Detect)
[2020-08-19 07:28] LABS: Bordetella Pertussis Not Detected (Not Detect); Chlamydophila pneumoniae Not Detected (Not Detect); Coronavirus OC43 Not Detected (Not Detect); Human Metapneumovirus Not Detected (Not Detect); Human Rhinovirus/Enterovirus Not Detected (Not Detect); Influenza A Subtype 2009 H1 Not Detected (Not Detect); Influenza B Not Detected (Not Detect); Mycoplasma pneumoniae Not Detected (Not Detect); Parainfluenza Virus 1 Not Detected (Not Detect); Parainfluenza Virus 2 Not Detected (Not Detect); Parainfluenza Virus 3 Not Detected (Not Detect); Parainfluenza Virus 4 Not Detected (Not Detect); Respiratory Syncytial Virus Not Detected (Not Detect)
[2020-08-19] MEDS: lisinopriL 5 MG TABLET PO SCH (07:39)
[2020-08-19] MEDS: Gabapentin 300 MG CAPSULE PO SCH (07:39)
[2020-08-19] MEDS: Dexamethasone 4 MG/ML VIAL IVP SCH (07:40)
[2020-08-19] MEDS: Insulin LISPRO 300 UNITS/3 ML VIAL SQ SCH ×2 (08:17→12:40)
[2020-08-19] MEDS ORDERED: Isosorbide MONOnitrate (24 HR) 30 MG TAB.ER.24H PO SCH (09:00)
[2020-08-19] MEDS ORDERED: Aspirin 81 MG TAB.CHEW PO SCH (09:00)
[2020-08-19] MEDS ORDERED: Cholecalciferol (D-3) 1,000 UNIT (25MCG) TABLET PO SCH (09:00)
[2020-08-19 09:21] LABS: C-Reactive Protein 38 mg/L (Less than 10)
[2020-08-19] MEDS: Tiotropium 18 MCG inhalation IH SCH (10:08)
[2020-08-19] MEDS: Budesonide/Formoterol 160/4.5 1 PUFF INH IH SCH (10:08)
[2020-08-19 11:15] VITALS: BP 113/62
== END 2020-08-19 17:10 | disposition home health service (06) ==
LOC: 2NENU 16:37 → EMEROOARM 16:37 → SUATTDRO 18:54 → 2NENU 20:25
PROVIDERS: ADMIT Pharmacist; ATTEND Internal Medicine